=== PATIENT | male | born 1945 | race Two or more races ===

== ENCOUNTER 2024-05-13 22:47 | Inpatient (IN) | payer OTHER ==
[~2024-05-13] VITALS: Ht 177.8 cm; Wt 105.0 kg
--- NOTE | 2024-05-13 23:12 | ED.PDOC ---
History of Present Illness HPI Comments 79-year-old male brought in by EMS presents with a chief complaint of chest pain/pressure and palpitations x 1 hour. Patient states that he was lying down in bed and began to feel "weird" and decided to check his blood pressure. Patient mentions that his heart rate was in the 200s and decided to call 911. Mateusz stevens HR now at bedside evaluation is 97 BPM. Patient mentions that he has 5 stents and history of CABG. No other symptoms or modifying factors present at this time. Chief Complaint: Chest Pain Time Seen by MD: 23:03 Reviewed Notes: Medications, Allergies Allergies: Coded Allergies: NO KNOWN ALLERGIES (Unverified , 05/13/24) Information Source: Patient Mode of Arrival: EMS Severity: Moderate Timing: Hours Duration: Since onset Prehospital treatment: None Past Medical History PAST MEDICAL HISTORY: CAD, HTN Surgical History: CABG, Cholecystectomy, PTCA Family History Family History: Reviewed,noncontributory to illness Social History Smoker: Non-Smoker Alcohol: Denies ETOH Use Drugs: Denies Drug Use Lives In: Home Constitutional: denies: chills, diaphoresis, fatigue, fever, malaise, sweats, weakness, others EENTM: denies: blurred vision, double vision, ear bleeding, ear discharge, ear drainage, ear pain, ear ringing, eye pain, eye redness, hearing loss, mouth pain, mouth swelling, nasal discharge, nose bleeding, nose congestion, nose pain, photophobia, tearing, throat pain, throat swelling, voice changes, others Respiratory: denies: cough, hemoptysis, orthopnea, SOB at rest, shortness of breath, SOB with excertion, stridor, wheezing, others Cardiovascular: reports: palpitations; denies: chest pain, dizzy spells, diaphoresis, Dyspnea on exertion, edema, irregular heart beat, left arm pain, lightheadedness, PND, syncope, others Gastrointestinal: denies: abdomen distended, abdominal pain, blood streaked bowels, constipated, diarrhea, dysphagia, difficulty swallowing, hematemesis, melena, nausea, poor appetite, poor fluid intake, rectal bleeding, rectal pain, vomiting, others Genitourinary: denies: burning, dysuria, flank pain, frequency, hematuria, incontinence, penile discharge, penile sore, pain, testicle pain, testicle swelling, urgency, others Neurological: denies: dizziness, fainting, headache, left sided numbness, left sided weakness, numbness, paresthesia, pre-existing deficit, right sided numbness, right sided weakness, seizure, speech problems, tingling, tremors, weakness, others Musculoskeletal: denies: back pain, gout, joint pain, joint swelling, muscle pa in, muscle stiffness, neck pain, others Integumetry: denies: bruises, change in color, change in hair/nails, dryness, laceration, lesions, lumps, rash, wounds, others Allergic/Immunocompromised: denies: Difficulty Healing, Frequent Infections, Hives, Itching, others Hematologic/Lymphatic: denies: anemia, blood clots, easy bleeding, easy bruising, swollen glands, others Endocrine: denies: excessive hunger, excessive sweating, excessive thirst, excessive urination, flushing, intolerance to cold, intolerance to heat, unexplained weight gain, unexplained weight loss, others Psychiatric: denies: anxiety, bipolar disorder, depression, hopeless, panic disorder, schizophrenia, sleepless, suicidal, others All Other Systems: Reviewed and Negative Physical Exam General Appearance: No Apparent Distress HEENT: Normal ENT Inspection Neck: Full Range of Motion, Normal Inspection Respiratory: Lungs Clear, No Accessory Muscle Use, No Respiratory Distress, Normal Breath Sounds Cardiovascular: No Edema, No JVD, Tachycardia Breast Exam: Deferred Gastrointestinal: Non Tender, Soft Genitalia: Deferred Pelvic: Deferred Rectal: Deferred Extremities: No calf tenderness, Normal inspection, Normal range of motion, Non-tender, No pedal edema Neurologic: Alert, No Motor Deficits, Normal Affect, Normal Mood, No Sensory Deficits Cerebellar Function: NOT DONE Reflexes: NOT DONE Skin: Dry, Normal Color, Warm Lymphatic: NOT DONE Was a procedure done? Was a procedure done?: No EKG EKG : Comments Sinus tach, rate 102, normal intervals, borderline left axis deviation, normal QRS, nonspecific T changes. Differential Dx Considerations may include: ACS, [place], arrhythmia, PE, chest wall pain, electrolyte imbalance, anxiety, CHF, among others X-Ray, Labs, Meds, VS Vital Signs Date Time Temp Pulse Resp B/P (MAP) Pulse Ox O2 Delivery O2 Flow Rate FiO2 05/14/24 03:59 76 05/14/24 01:00 88 20 102/59 (73) 97 05/14/24 00:00 89 05/13/24 23:30 Nasal Cannula* 2 28 05/13/24 23:03 98 20 124/68 (86) 97 05/13/24 22:50 98.3 105 20 128/81 (97) 97 05/13/24 22:48 102 Lab Test 05/13/24 23:57 05/13/24 22:47 Range/Units Troponin I High Sensitivity 11 6 </=54 ng/L White Blood Count 7.6 4.4-10.8 10^3/uL Red Blood Count 4.27 L 4.5-5.90 10^6/uL Hemoglobin 13.8 13.5-17.5 g/dL Hematocrit 41.2 41.0-53.0 % Mean Corpuscular Volume 96.3 80.0-100.0 fL Mean Corpuscular Hemoglobin 32.3 H 28.0-32.0 pg Mean Corpuscular Hemoglobin Concent 33.5 32.0-36.0 g/dL Red Cell Distribution Width 13.9 11.8-14.3 % Platelet Count 163 140-450 10^3/uL Mean Platelet Volume 11.8 H 6.9-10.8 fL Neutrophils (%) (Auto) 60.9 37.0-80.0 % Lymphocytes (%) (Auto) 24.9 10.0-50.0 % Monocytes (%) (Auto) 8.0 0.0-12.0 % Eosinophils (%) (Auto) 5.7 0.0-7.0 % Basophils (%) (Auto) 0.5 0.0-2.0 % Neutrophils # (Auto) 4.6 1.6-8.6 10 ^3/uL Lymphocytes # (Auto) 1.9 0.4-5.4 10 ^3/uL Monocytes # (Auto) 0.6 0-1.3 10 ^3/uL Eosinophils # (Auto) 0.4 0-0.8 10 ^3/uL Basophils # (Auto) 0 0-0.2 10 ^3/uL Nucleated Red Blood Cells 0.0 % Prothrombin Time 11.8 9.3-11.8 sec Prothrombin Time INR 1.12 0.9-1.15 Activated Partial Thromboplast Time 25.9 24.5-34.5 SEC Sodium Level 137 136-145 mmol/L Potassium Level 4.3 3.5-5.1 mmol/L Chloride Level 106 98-107 mmol/L Carbon Dioxide Level 23 20-31 mmol/L Anion Gap 8 5-15 Blood Urea Nitrogen 19 9-23 mg/dL Creatinine 1.30 0.700-1.30 mg/dL Glomerular Filtration Rate Calc 56 >90 mL/min BUN/Creatinine Ratio 14.6 10.0-20.0 Serum Glucose 240 H 74-106 mg/dL Calcium Level 9.0 8.7-10.4 mg/dL B-Type Natriuretic Peptide 38.31 0-100 pg/mL X-Ray, Labs, Meds, VS Comment 79-year-old male with a history of CAD and hypertension complaining of palpitations and chest pain Vitals remarkable for heart rate 102 Exam remarkable for tachycardia EKG sinus tach, nonspecific T changes Chest x-ray independently interpreted by me: Cardiomegaly with pulmonary vascular prominence, no definite infiltrate or effusion, normal mediastinal width, grossly normal bony thorax, no free air, no pneumothorax. CBC, BMP, BNP and 2 serial troponins unremarkable for any abnormality of acute significance Patient treated with the following in the ED: 1 L 0.9 normal saline IV bolus On re-evaluation, heart rate was 89, and patient was not complaining of chest pain. Plan is to admit the patient for Cardiology evaluation. Time of 1ST Reevaluation: 23:33 Reevaluation 1ST: Unchanged Time of 2ND Reevaluation: 02:14 Reevaluation 2ND: Improved Patient Education/Counseling: Diagnosis, Treatment, Prognosis Family Education/Counseling: No Family Present Departure 1 Departure Time of Disposition: 02:14 Impression: Primary Impression: Chest pain Qualified Codes: I20.89 - Other forms of angina pectoris Disposition: 09 ADMITTED INPATIENT Admit to: Tele Condition: Guarded Critical Care Note Critical Care Time?: No Stability Stability form required: No Heart Score Heart Score: Heart Score Response (Comments) Value History Moderate Suspicious 1 EKG Repolarization Disturb 1 Age >65 2 Risk Factors >3 or Hx ASHD 2 Troponin Normal limit 0 Total 6 I personally scribed for DWAYNE RENDON MD ([email or web address]) on 05/13/24 at 23:12. Electronically submitted by Aliroi Burnett ([email or web address]). DWAYNE RENDON MD May 13, 2024 23:12
[2024-05-13 23:28] LABS: Basophils # (auto) 0 10 ^3/uL (0-0.2); Basophils % (auto) 0.5 % (0.0-2.0); Eosinophils # (auto) 0.4 10 ^3/uL (0-0.8); Eosinophils % (auto) 5.7 % (0.0-7.0); Hematocrit 41.2 % (41.0-53.0); Hemoglobin 13.8 g/dL (13.5-17.5); Lymphocytes # (auto) 1.9 10 ^3/uL (0.4-5.4); Lymphocytes % (auto) 24.9 % (10.0-50.0); Mean Corpuscular Hemoglobin 32.3 pg (28.0-32.0); Mean Corpuscular Hgb Conc. 33.5 g/dL (32.0-36.0); Mean Corpuscular Volume 96.3 fL (80.0-100.0); Monocytes # (auto) 0.6 10 ^3/uL (0-1.3); Neutrophils # (auto) 4.6 10 ^3/uL (1.6-8.6); Neutrophils % (auto) 60.9 % (37.0-80.0); Platelet Count (auto) 163 10^3/uL (140-450); Red Blood Cells 4.27 10^6/uL (4.5-5.90); Red Cell Distribution Width 13.9 % (11.8-14.3); White Blood Cell 7.6 10^3/uL (4.4-10.8)
[2024-05-13 23:35] LABS: Chloride 106 mmol/L (98-107); Potassium 4.3 mmol/L (3.5-5.1); Sodium 137 mmol/L (136-145)
[2024-05-13 23:36] LABS: Anion Gap 8 (5-15); Carbon Dioxide 23 mmol/L (20-31)
[2024-05-13 23:41] LABS: BUN/Creatinine Ratio 14.6 (10.0-20.0); Blood Urea Nitrogen 19 mg/dL (9-23); Glucose 240 mg/dL (74-106)
[2024-05-13 23:43] LABS: INR 1.12 (0.9-1.15); Partial Thromboplastin Time 25.9 SEC (24.5-34.5); Prothrombin Time 11.8 sec (9.3-11.8)
--- NOTE | 2024-05-14 03:30 | DVH ---
Examination: CXRP Clinical Indication:cp Comparison: None. Technique: Frontal radiograph of the chest was obtained. Findings: Lungs are clear and well expanded, with no pulmonary infiltrate or pleural effusion. There is no pneumothorax. No evidence of cardiomegaly. No acute osseous abnormality is seen. Sternotomy sutures noted. Please correlate with operative history. Impression: No acute cardiopulmonary disease is seen. Electronically Signed 05/14/2024 03:21 Jerzy Yañez
[2024-05-14] MEDS ORDERED: DEXTROSE (50%) 50ML SYRG IV PRN (04:15)
[2024-05-14] MEDS ORDERED: ACETAMINOPHEN 325 MG TAB PO PRN (04:15)
[2024-05-14] MEDS ORDERED: ONDANSETRON HCL 4 MG/2 ML VIAL IV PRN (04:15)
[2024-05-14] MEDS ORDERED: NITROGLYCERIN 0.4 MG SL TAB SL PRN (04:15)
[2024-05-14] MEDS ORDERED: MORPHINE SULFATE INJ 2 MG/ml SYRG IV PRN (04:15)
[2024-05-14] MEDS: LEVOTHYROXINE SODIUM 50 MCG TAB PO SCH (05:33)
[2024-05-14] MEDS: FUROSEMIDE 40 MG TAB PO SCH (05:33)
--- NOTE | 2024-05-14 06:20 | DVHHP2 ---
History of Present Illness Reason for Visit: Chest pain History of Present Illness 79-year-old male presents evaluation of chest pain. Patient reports a one day history of chest pain associated palpitations. In route patient was noted to be in SVT and converted after one round of 6 mg of adenosine. Currently he reports mild shortness for breath. No other acute complaints reported. Past Medical History Thyroid, diabetes mellitus, hypertension, CAD and head CT Past Surgical History Cholecystectomy, PTCA CABG Family History Noncontributory Smoke: No ALCOHOL: none Drugs: None Lives: with Family Review of Systems Review of Systems Review of systems are currently negative otherwise addressed in HPI. Allergies: Coded Allergies: NO KNOWN ALLERGIES (Unverified , 05/13/24) Medications Current Medications Medications Dose Ordered Sig/Bev Route Start Time Stop Time Status Last Admin Dose Admin Aspirin 162 mg DAILY PO 05/14/24 10:00 Levothyroxine Sodium 50 mcg QAM@0600 PO 05/14/24 06:00 05/14/24 05:33 50 MCG Atorvastatin Calcium 80 mg HS PO 05/14/24 22:00 Furosemide 40 mg BIDD PO 05/14/24 06:00 05/14/24 05:33 40 MG Gabapentin 300 mg DAILY PO 05/14/24 10:00 Nifedipine 60 mg DAILY PO 05/14/24 10:00 Lisinopril 20 mg DAILY PO 05/14/24 10:00 Clopidogrel Bisulfate 75 mg DAILY PO 05/14/24 10:00 Diagnostic Test (Pha) 1 strip ACHS 05/14/24 07:00 Insulin Human Regular ACHS SC 05/14/24 07:00 Dextrose 50 ml UD PRN IV 05/14/24 04:15 Ondansetron HCl 4 mg Q4HP PRN IV 05/14/24 04:15 Enoxaparin Sodium 40 mg DAILY SC 05/14/24 10:00 Acetaminophen 650 mg Q6HP PRN PO 05/14/24 04:15 Nitroglycerin 0.4 mg Q5MINP PRN SL 05/14/24 04:15 Morphine Sulfate 2 mg Q30M PRN IV 05/14/24 04:15 Exam Vital Signs Vital Signs Date Time Temp Pulse Resp B/P (MAP) Pulse Ox O2 Delivery O2 Flow Rate FiO2 05/14/24 06:00 74 17 135/79 (97) 97 05/13/24 23:30 Nasal Cannula* 2 28 05/13/24 22:50 98.3 Exam Gen: 79-year-old male in no apparent distress. Skin: Warm, dry, normal color and texture, no rash. HEENT: Normocephalic atraumatic, mucous membranes moist and pink. Neck: Cervical and supraclavicular nodes normal without enlargement, trachea is midline, thyroid gland is normal without masses. Pulmonary: Clear to auscultation and percussion bilaterally. Cardiac: Regular rate and rhythm. No murmur Abdomen: Soft, nontender, nondistended, bowel sounds present all 4 quadrants, no guarding, no rigidity, no organomegaly. Extremities: No cyanosis, clubbing, no edema Neuro: Cranial nerves II through XII grossly intact, normal affect and speech, no focal motor deficits. Labs/Xrays ORDERING PHYSICIAN: DWAYNE RENDON MD PROCEDURE(s): CXRP - CHEST PORTABLE REASON: cp ORDER NUMBER(s): [id number], ACCESSION NUMBER(s): [id number] Examination: CXRP Clinical Indication:cp Comparison: None. Technique: Frontal radiograph of the chest was obtained. Findings: Lungs are clear and well expanded, with no pulmonary infiltrate or pleural effusion. There is no pneumothorax. No evidence of cardiomegaly. No acute osseous abnormality is seen. Sternotomy sutures noted. Please correlate with operative history. Impression: No acute cardiopulmonary disease is seen. Electronically Signed 05/14/2024 03:21 Jerzy Yañez Labs Test 05/13/24 23:57 05/13/24 22:47 Range/Units Troponin I High Sensitivity 11 </=54 ng/L White Blood Count 7.6 4.4-10.8 10^3/uL Red Blood Count 4.27 L 4.5-5.90 10^6/uL Hemoglobin 13.8 13.5-17.5 g/dL Hematocrit 41.2 41.0-53.0 % Mean Corpuscular Volume 96.3 80.0-100.0 fL Mean Corpuscular Hemoglobin 32.3 H 28.0-32.0 pg Mean Corpuscular Hemoglobin Concent 33.5 32.0-36.0 g/dL Red Cell Distribution Width 13.9 11.8-14.3 % Platelet Count 163 140-450 10^3/uL Mean Platelet Volume 11.8 H 6.9-10.8 fL Neutrophils (%) (Auto) 60.9 37.0-80.0 % Lymphocytes (%) (Auto) 24.9 10.0-50.0 % Monocytes (%) (Auto) 8.0 0.0-12.0 % Eosinophils (%) (Auto) 5.7 0.0-7.0 % Basophils (%) (Auto) 0.5 0.0-2.0 % Neutrophils # (Auto) 4.6 1.6-8.6 10 ^3/uL Lymphocytes # (Auto) 1.9 0.4-5.4 10 ^3/uL Monocytes # (Auto) 0.6 0-1.3 10 ^3/uL Eosinophils # (Auto) 0.4 0-0.8 10 ^3/uL Basophils # (Auto) 0 0-0.2 10 ^3/uL Nucleated Red Blood Cells 0.0 % Prothrombin Time 11.8 9.3-11.8 sec Prothrombin Time INR 1.12 0.9-1.15 Activated Partial Thromboplast Time 25.9 24.5-34.5 SEC Sodium Level 137 136-145 mmol/L Potassium Level 4.3 3.5-5.1 mmol/L Chloride Level 106 98-107 mmol/L Carbon Dioxide Level 23 20-31 mmol/L Anion Gap 8 5-15 Blood Urea Nitrogen 19 9-23 mg/dL Creatinine 1.30 0.700-1.30 mg/dL Glomerular Filtration Rate Calc 56 >90 mL/min BUN/Creatinine Ratio 14.6 10.0-20.0 Serum Glucose 240 H 74-106 mg/dL Calcium Level 9.0 8.7-10.4 mg/dL B-Type Natriuretic Peptide 38.31 0-100 pg/mL Assessment/Plan Assessment/Plan Assessment Chest pain SVT Hypertension CAD Status post CABG Plan Admit the patient to telemetry to the hospitalist ACS protocol Resume home medications Continue treatment per orders. Plan discussed with: Patient My Orders Orders - VICTORINA ABBOTT Procedure Category Date Status Time * Cardiology Consult CONS 05/14/24 Transmitted 04:14 Aspirin Tablet PHA 05/14/24 In Process 10:00 Levothyroxine Tablet PHA 05/14/24 In Process (Synthroid Tablet) 06:00 Atorvastatin (Lipitor) PHA 05/14/24 In Process 22:00 Furosemide Tablet PHA 05/14/24 In Process (Lasix Tablet) 06:00 Gabapentin Capsule PHA 05/14/24 In Process (Neurontin Capsule) 10:00 Nifedipine Er PHA 05/14/24 In Process (Procardia Xl 10:00 Lisinopril Tablet [facility] 05/14/24 In Process (Zestril Tablet) 10:00 Clopidogrel Bisulfate PHA 05/14/24 In Process (Plavix) 10:00 Basic Metabolic Panel LAB 05/15/24 Verified 04:00 Glucose Blood PHA 05/14/24 In Process (Accu-Chek Comfort 07:00 Insulin R (Human) PHA 05/14/24 In Process (Insulin R) 07:00 Dextrose 50% Syringe PHA 05/14/24 In Process 04:15 Admit ADMIT 05/14/24 Transmitted 04:14 Ondansetron Hcl [facility] 05/14/24 In Process (Zofran) 04:15 Enoxaparin Sodium [facility] 05/14/24 In Process (Lovenox) 10:00 Cardiac DIET 05/14/24 Transmitted Diet-2gna,Lofat,Lochol Breakfast Echo 2d Mode Cardiac US 05/14/24 Logged DOP 04:14 Condition: Fair [facility] 05/14/24 In Process 04:14 Acetaminophen Tablet [facility] 05/14/24 In Process (Tylenol Tablet) 04:15 Bedrest With Bathroom [facility] 05/14/24 In Process Privileg 04:14 Nitroglycerin [facility] 05/14/24 In Process Sublingual (Ntrostat 04:15 Morphine Sulfate [facility] 05/14/24 In Process Injection 04:15 Stat Ekg For Chest [facility] 05/14/24 In Process Pain 04:14 Notify Md Of Changes [facility] 05/14/24 In Process From Base 04:14 Senior [employer] Developer For [facility] 05/14/24 In Process 24 Hours 04:14 Emergency Dysrhythmia [facility] 05/14/24 In Process Protocol 04:14 Rhythm Strips Once [facility] 05/14/24 In Process Every Shift 04:14 Oxygen By Nasal RT 05/14/24 Transmitted Cannula 04:14 Date of Service: May 14, 2024 Billing Provider: VICTORINA ABBOTT Common Visit Codes: [id number] INP/OBS CARE (HIGH) VICTORINA ABBOTT May 14, 2024 06:20
[2024-05-14] MEDS: ACCU-CHEK COMFORT CURVE STRIP VI SCH (06:46)
[2024-05-14] MEDS: InsuLIN REG 1unit/0.01ml Soln (100units/ml) SC SCH (06:46)
--- NOTE | 2024-05-14 08:16 | ECG ---
[facility] Test Date: 2024-05-13 Test Time: 22:48:11 Pat Name: ARCELIA TRIPP Department: ED Room: [address] [place] [address] Gender: M [employer]: : 1945 Requested By: DWAYNE QUINTEROS Order Number: [id number] Reading MD: Measurements Intervals [place] Rate: 102 P: 43 [place]: 196 QRS: 41 QRSD: 75 T: 72 QT: 335 QTc: 437 Interpretive Statements Sinus tachycardia Low voltage, precordial leads Please click the below link to view image of tracing.
[2024-05-14] MEDS ORDERED: DILT360C37 PO (09:22)
[2024-05-14] MEDS: ASPirin 81 mg TAB PO SCH (09:33)
[2024-05-14] MEDS: GABAPENTIN 300 MG CAP PO SCH (09:33)
[2024-05-14] MEDS: LISINOPRIL 20 MG TAB PO SCH (09:33)
[2024-05-14] MEDS: CLOPIDOGREL BISULFATE 75 MG TAB PO SCH (09:34)
[2024-05-14] MEDS: NIFEdipine ER 30 MG TAB PO SCH (09:34)
[2024-05-14] MEDS: ENOXAPARIN SOD 40 MG/0.4 ML SYRINGE SC SCH (09:35)
--- NOTE | 2024-05-14 10:28 | DVHINCON2 ---
Date Seen: May 14, [address] Watts Reason for Consultation Chest pain History of Present Illness 79-year-old male patient with history of type 2 diabetes, hypertension, coronary artery disease status post CABG, previous supraventricular tachycardia who presented to the emergency department with chest pain and palpitations. He reports missing the dose of his heart rate control medications (diltiazem 360 mg) the night before which he believes triggered his symptoms. Upon arrival he was in supraventricular tachycardia and was successfully converted to normal rhythm with 0.6 mg of adenosine. He currently denies chest pain. He describes it as a dull, pressure-like sensation in the center of the chest, without radiation, occurring exclusively during the palpitation episodes. Initially had a chest pain (resolved) and palpitation with no other complaints. BNP was within normal limits troponin level was normal and chest x-ray was normal EKG shows sinus rhythm. The cardiology team was consulted for evaluation of the chest pain no pal pitations likely secondary to increased oxygen demand during the SVT episode. Past Medical History Type 2 diabetes Hypertension Coronary artery disease status post CABG Supraventricular tachycardia Type 1 obesity Allergies: Coded Allergies: NO KNOWN ALLERGIES (Unverified , 05/13/24) Home Meds Reported Medications Diltiazem HCl Coated Beads (Diltiazem Hydrochloride E) 360 Mg Cap, 1 CAP PO DAILY 05/14/24 Current Medications Current Medications Medications (Trade) Dose Ordered Sig/Bev Route PRN Reason Start Time Stop Time Status Last Admin Aspirin 162 mg DAILY PO 05/14/24 10:00 05/14/24 09:33 Levothyroxine Sodium (Synthroid Tablet) 50 mcg QAM@0600 PO 05/14/24 06:00 05/14/24 05:33 Atorvastatin Calcium (Lipitor) 80 mg HS PO 05/14/24 22:00 Furosemide (Lasix Tablet) 40 mg BIDD PO 05/14/24 06:00 05/14/24 05:33 Gabapentin (Neurontin Capsule) 300 mg DAILY PO 05/14/24 10:00 05/14/24 09:33 Nifedipine (Procardia Xl (Time-Release)) 60 mg DAILY PO 05/14/24 10:00 05/14/24 09:34 Lisinopril (Zestril Tablet) 20 mg DAILY PO 05/14/24 10:00 05/14/24 09:33 Clopidogrel Bisulfate (Plavix) 75 mg DAILY PO 05/14/24 10:00 05/14/24 09:34 Diagnostic Test (Pha) (Accu-Chek Comfort Curve T) 1 strip ACHS 05/14/24 07:00 05/14/24 06:46 Insulin Human Regular (InsuLIN R) ACHS SC 05/14/24 07:00 Dextrose 50 ml UD PRN IV Blood Sugar LESS THAN 60 05/14/24 04:15 Ondansetron HCl (Zofran) 4 mg Q4HP PRN IV NAUSEA / VOMITING 05/14/24 04:15 Enoxaparin Sodium (Lovenox) 40 mg DAILY SC 05/14/24 10:00 05/14/24 09:35 Acetaminophen (Tylenol Tablet) 650 mg Q6HP PRN PO PAIN SCALE 1-3 OR TEMP>100.4 05/14/24 04:15 Nitroglycerin (Ntrostat Sublingual) 0.4 mg Q5MINP PRN SL FOR CHEST PAIN 05/14/24 04:15 Morphine Sulfate 2 mg Q30M PRN IV FOR CHEST PAIN 05/14/24 04:15 Review of Systems Constitutional: No: Fever, Chills, Sweats, Weakness, Malaise, Other Eyes: No: Pain, Vision change, Conjunctivae inflammation, Eyelid inflammation, Other, Redness ENT: No: Ear pain, Ear discharge, Nose pain, Nose discharge, Nose congestion, Mouth pain, Mouth swelling, Throat pain, Throat swelling, Other Respiratory: No Wheezing, Hemoptysis, Pleuritic Pain, Sputum, Wheezing, Other Cardiovascular: Yes: Chest pain, palpitations No: Orthopnea, Paroxysmal Noc. Dyspnea, Edema, Lt Headedness, Other Gastrointestinal: No: Nausea, Vomiting, Abdominal Pain, Diarrhea, Constipation, Melena, Hematochezia, Other Musculoskeletal: No: other, neck pain, shoulder pain, arm pain, back pain, hand pain, leg pain, foot pain Neurological:; No: Weakness, Numbness, Incoordination, Change in speech, Confusion, Seizures Vital Signs Vital Signs Date Time Temp Pulse Resp B/P (MAP) Pulse Ox O2 Delivery O2 Flow Rate FiO2 05/14/24 09:34 130/69 05/14/24 08:00 69 19 98 05/14/24 07:58 Room Air* 0 21 05/13/24 22:50 98.3 Physical Exam Examination General Appearance: Alert, Oriented X3, Cooperative, No acute distress HEENT: EOMI Respiratory: Clear to auscultation, Normal air movement Cardiovascular: Regular rate, Normal S1, Normal S2 Abdominal: Normal bowel sounds Extremities: No cyanosis, No edema, Normal pulses, No tenderness/swelling Skin: No rashes, No breakdown Neuro: Normal gait, Normal speech, Strength at 5/5 X4 ext, Normal tone, Sensation intact, Cranial nerves 3-12 NL, Reflexes 2+ Psych/Mental Status: Mental status NL, Mood NL Labs/Diagnostic Data Labs Test 05/14/24 06:45 05/13/24 23:57 05/13/24 22:47 Range/Units POC Glucose 126 H 70-106 mg/dl Troponin I High Sensitivity 11 </=54 ng/L White Blood Count 7.6 4.4-10.8 10^3/uL Red Blood Count 4.27 L 4.5-5.90 10^6/uL Hemoglobin 13.8 13.5-17.5 g/dL Hematocrit 41.2 41.0-53.0 % Mean Corpuscular Volume 96.3 80.0-100.0 fL Mean Corpuscular Hemoglobin 32.3 H 28.0-32.0 pg Mean Corpuscular Hemoglobin Concent 33.5 32.0-36.0 g/dL Red Cell Distribution Width 13.9 11.8-14.3 % Platelet Count 163 140-450 10^3/uL Mean Platelet Volume 11.8 H 6.9-10.8 fL Neutrophils (%) (Auto) 60.9 37.0-80.0 % Lymphocytes (%) (Auto) 24.9 10.0-50.0 % Monocytes (%) (Auto) 8.0 0.0-12.0 % Eosinophils (%) (Auto) 5.7 0.0-7.0 % Basophils (%) (Auto) 0.5 0.0-2.0 % Neutrophils # (Auto) 4.6 1.6-8.6 10 ^3/uL Lymphocytes # (Auto) 1.9 0.4-5.4 10 ^3/uL Monocytes # (Auto) 0.6 0-1.3 10 ^3/uL Eosinophils # (Auto) 0.4 0-0.8 10 ^3/uL Basophils # (Auto) 0 0-0.2 10 ^3/uL Nucleated Red Blood Cells 0.0 % Prothrombin Time 11.8 9.3-11.8 sec Prothrombin Time INR 1.12 0.9-1.15 Activated Partial Thromboplast Time 25.9 24.5-34.5 SEC Sodium Level 137 136-145 mmol/L Potassium Level 4.3 3.5-5.1 mmol/L Chloride Level 106 98-107 mmol/L Carbon Dioxide Level 23 20-31 mmol/L Anion Gap 8 5-15 Blood Urea Nitrogen 19 9-23 mg/dL Creatinine 1.30 0.700-1.30 mg/dL Glomerular Filtration Rate Calc 56 >90 mL/min BUN/Creatinine Ratio 14.6 10.0-20.0 Serum Glucose 240 H 74-106 mg/dL Calcium Level 9.0 8.7-10.4 mg/dL B-Type Natriuretic Peptide 38.31 0-100 pg/mL Assessment Supraventricular tachycardia Type 2 diabetes Hypertension Coronary artery disease status post CABG Obesity Plan/Recommendation Conservative management One round of adenosine 6 mg IV which converted him to sinus rhythm Resume home medications Patient is stable, EKG was not remarkable on troponin levels were negative. Thank you for allowing us participate in this case there is no further workup indicated at this time, we are signing off . Follow-up in the outpatient. Case discussed with Dr. Rico Critical care, time spent: 44 minutes Plan discussed with: Patient Date of Service: May 14, 2024 Billing Provider: JOHN MCGILL Cardiology Common Codes: [id number] INP/OBS CARE (High) JOHN MCGILL May 14, 2024 10:28
--- NOTE | 2024-05-14 13:29 | DVHDS2 ---
Discharge Summary Date of Admission May 14, 2024 at 04:19 Date of Discharge: May 14, 2024 Labs/Diagnostic Data: Laboratory Results Test 05/14/24 06:45 05/13/24 23:57 05/13/24 22:47 POC Glucose 126 mg/dl (70-106) Troponin I High Sensitivity 11 ng/L (</=54) White Blood Count 7.6 10^3/uL (4.4-10.8) Red Blood Count 4.27 10^6/uL (4.5-5.90) Hemoglobin 13.8 g/dL (13.5-17.5) Hematocrit 41.2 % (41.0-53.0) Mean Corpuscular Volume 96.3 fL (80.0-100.0) Mean Corpuscular Hemoglobin 32.3 pg (28.0-32.0) Mean Corpuscular Hemoglobin Concent 33.5 g/dL (32.0-36.0) Red Cell Distribution Width 13.9 % (11.8-14.3) Platelet Count 163 10^3/uL (140-450) Mean Platelet Volume 11.8 fL (6.9-10.8) Neutrophils (%) (Auto) 60.9 % (37.0-80.0) Lymphocytes (%) (Auto) 24.9 % (10.0-50.0) Monocytes (%) (Auto) 8.0 % (0.0-12.0) Eosinophils (%) (Auto) 5.7 % (0.0-7.0) Basophils (%) (Auto) 0.5 % (0.0-2.0) Neutrophils # (Auto) 4.6 10 ^3/uL (1.6-8.6) Lymphocytes # (Auto) 1.9 10 ^3/uL (0.4-5.4) Monocytes # (Auto) 0.6 10 ^3/uL (0-1.3) Eosinophils # (Auto) 0.4 10 ^3/uL (0-0.8) Basophils # (Auto) 0 10 ^3/uL (0-0.2) Nucleated Red Blood Cells 0.0 % Prothrombin Time 11.8 sec (9.3-11.8) Prothrombin Time INR 1.12 (0.9-1.15) Activated Partial Thromboplast Time 25.9 SEC (24.5-34.5) Sodium Level 137 mmol/L (136-145) Potassium Level 4.3 mmol/L (3.5-5.1) Chloride Level 106 mmol/L (98-107) Carbon Dioxide Level 23 mmol/L (20-31) Anion Gap 8 (5-15) Blood Urea Nitrogen 19 mg/dL (9-23) Creatinine 1.30 mg/dL (0.700-1.30) Glomerular Filtration Rate Calc 56 mL/min (>90) BUN/Creatinine Ratio 14.6 (10.0-20.0) Serum Glucose 240 mg/dL (74-106) Calcium Level 9.0 mg/dL (8.7-10.4) B-Type Natriuretic Peptide 38.31 pg/mL (0-100) Other Laboratory Tests 05/13/24 22:47 Brief Hx & Hospital Course: Diagnoses or other: SVT Type 2 diabetes Hypertension Coronary artery disease status post CABG Obesity 79-year-old male with a history of SVT who takes Cardizem CD 360 mg daily at home missed taking his dose yesterday morning and therefore in the evening he started having pressure sensation and palpitations and he checked his heart rate it was 180 He came here and who was in his VT. He was given One round of adenosine 6 mg IV which converted him to sinus rhythm Right now he is asymptomatic Heart rate is stable His workup was negative including labs and chest x-ray and troponin The patient will be discharged home He will be getting Cardizem CD 360 mg now and then discharged home on the same home medications Condition at Discharge: Stable Final Diagnosis/Problems List SVT Discharge Disposition: Home SNF Discharge Will this Physician continue t: No Discharge Instruct/Medications Diet: Cardiac 2g Na,low cholest Activity: No Restrictions, As Tolerated Follow Up/Referral: PCP as soon as possible Medications: Resume the home medications including Cardizem CD 360 mg daily Discharge Statement: "Patient was advised to return to the ER or call 911 if any headaches, dizziness, shortness of breath, chest pain, abdominal pain, bleeding, fevers, or worsening of medical condition. Patient was counseled about treatment plan, medications, possible side effects, patientverbalized understanding. All questions were answered to the best of my ability. This discharge took greater then 30 minutes in planning, reviewing documentation, counseling the patient, and discussing with other team members." ASSESSMENT ASSESSMENT Assessment SVT Date of Service: May 14, 2024 Billing Provider: ALBIN MOELLER MD Common Visit Codes: 51897-[facility]/OBS DISCH DAY >30min ALBIN MOELLER MD May 14, 2024 13:29
[2024-05-14] MEDS ORDERED: dilTIAZem HCL 180MG ER CAP PO ONE (13:30)
[2024-05-14 13:59] VITALS: BP 132/67; PULSE 83; RESP 17; TEMP 98.1; O2SAT 98
--- NOTE | 2024-05-14 15:18 | DVHSR ---
APPROVED REPORT EXAM: Two-dimensional and M-mode echocardiogram with Doppler and color Doppler. Blood Pressure: 135/79 mmHg INDICATION Chest Pain Surgery/Intervention CABG: RISK FACTORS Height: 70, Weight: 231 DIMENSIONS LVDd5.2 (3.8-5.7cm)LA (2D)4.4 (1.9-4.0cm)Aortic Root3.8 (2.0-3.7cm) LVDs3.8 (2.5-4.0cm)LA (MM) (1.9-4.0cm)Aortic Cusp Exc1.9 (1.5-2.0cm) EF (%) 50.0 (55-70%)Rt. Atrium3.3 (1.9-4.0cm)Asc. Aorta cm Mitral Valve MitralMitral Stenosis E wave0.67m/sMV Mean GR.3mmHg A wave1.34m/sMV Peak GR.103mmHg E/A ratio0.52D MVAcm2 DECEL [id number] 1/2 [id number] IVRTmsDop MVA2.90cm2 Aortic Valve Aortic ValveAortic Stenosis V11.02m/Ludivina Mean GR.3mmHg V21.16m/Ludivina Peak GR.5mmHg LVOT Diameter2.2 (1.8-2.4cm)Doppler AVA3.34cm2 Pulmonic Valve V20.80m/s Other Information Technically limited study due to patient sensitive to touch post CABG. Conclusion Normal left ventricular size and dimension. Normal left ventricular systolic function estimated ejec tion fraction 50%. There is a grade 1 diastolic dysfunction. Normal right ventricular size and dimension. Normal right ventricular systolic function. Normal biatrial size and dimension. Normal aortic valve structure and function. There is mild aortic valve sclerosis. There is significant mitral annular calcification there is [id number] mitral valve regurgitatio n. There is mild tricuspid valve regurgitation. The pulmonary valve is grossly normal. No significant pericardial effusion was noted.
[2024-05-14] MEDS ORDERED: ATORVASTATIN 20 MG TAB PO SCH (22:00)
== END 2024-05-14 14:14 | disposition home or self-care (01) | DRG 310 ==
LOC: ER 22:47 → EDBD 22:47 → TELE 05-14 04:19 → UNDODEPER 05-14 16:49
PROVIDERS: ADMIT Nurse Practitioner; ATTEND Internal Medicine Geriatric Medicine
DX: I47.10 Supraventricular tachycardia, unspecified (principal); I25.118 Atherosclerotic heart disease of native coronary artery with other forms of angina pectoris; I10 Essential (primary) hypertension; E11.9 Type 2 diabetes mellitus without complications; E66.9 Obesity, unspecified; Z95.1 Presence of aortocoronary bypass graft; Z90.49 Acquired absence of other specified parts of digestive tract; Z95.5 Presence of coronary angioplasty implant and graft; Z79.899 Other long term (current) drug therapy
CPT/HCPCS: 36415; 80048; 82962; 83880; 84484; 85025; 85610; 85730; 93005; 93306; G0378